=== PATIENT | male | born 1960 | race Caucasian/White ===

== ENCOUNTER 2022-05-27 23:00 | Emergency (ER) | payer MEDICARE, MEDICAID ==
[~2022-05-27] VITALS: Ht 175.3 cm; Wt 100.0 kg
[2022-05-28] MEDS ORDERED: IBUPROFEN 600MG TABLET PO STA (00:24)
[2022-05-28] MEDS ORDERED: NAPR-681 PO (01:18)
[2022-05-28] MEDS ORDERED: GABA-532 MT (01:18)
[2022-05-28 10:00] VITALS: BP_SYST 130
[2022-05-28 10:32] VITALS: BP_DIAS 76
== END 2022-05-28 11:22 | disposition home or self-care (01) ==
LOC: ER 23:23
DX: M79.661 Pain in right lower leg (principal); E11.9 Type 2 diabetes mellitus without complications; I10 Essential (primary) hypertension; Z59.00 Homelessness unspecified; Z89.511 Acquired absence of right leg below knee
CPT/HCPCS: 99283